=== PATIENT | female | born 1975 | race Caucasian/White ===

== ENCOUNTER 2016-04-13 12:54 | Emergency (ER) | payer MEDICAID ==
[~2016-04-13] VITALS: Wt 91.0 kg
[~2016-04-13 12:54] MED LIST: AMOX500T PO; HYDR-3498 PO; IBUP-1542 PO; SULF-151 PO; ULT50 PO; ZOF8 PO
[2016-04-13] MEDS ORDERED: ONDANSETRON (ODT) 4 MG TAB ODT STA (13:55)
[2016-04-13] MEDS ORDERED: ACETAMINOPHEN 500 MG TAB PO STA (13:55)
[2016-04-13] MEDS ORDERED: TETRACAINE 0.5% 15 ML OPH LEFT EYE ONE (14:00)
[2016-04-13] MEDS ORDERED: ACET500C5 PO (14:26)
[2016-04-13] MEDS ORDERED: ONDA8TAB14 PO (14:26)
[2016-04-13] MEDS ORDERED: DEXT15DR2 LEFT EYE (14:26)
[2016-04-13] MEDS ORDERED: LISI2.5T59 PO (14:27)
--- NOTE | 2016-04-13 14:35 | ERD ---
ER Documentation Chief Complaint Date/Time DATE: 04/13/16 TIME: 14:33 Chief Complaint LEFT EYE REDNESS, MILD DIZZINESS, [place] HPI This 41-year-old female presents with left eye redness noticed today. She also complains of some sensation of headache in the area of her left eye as well as some mild dizziness. She denies any visual changes or visual field deficits except for some mild discomfort. She denies any cough, shortness breath, chest pain, weakness, bowel or bladder incontinence. She denies any history of trauma , discharge. ROS All systems reviewed and are negative except as per history of present illness. Medications Home Meds Active Scripts Lisinopril* (Lisinopril*) 2.5 Mg Tablet, 2.5 MG PO DAILY, #30 TAB Prov:LISEHT MACDONALD MD 04/13/16 Dextran/Hypromellose/Glycerin (Artificial Tears Drops) 15 Ml Drops, 2 DROP LEFT EYE Q6 for 10 Days, EA Prov:LISETH MACDONALD MD 04/13/16 Ondansetron (Ondansetron Odt) 8 Mg Tab.rapdis, 8 MG PO Q6H Y for NAUSEA AND/OR VOMITING, #6 TAB Prov:LISETH MACDONALD MD 04/13/16 Acetaminophen* (Tylophen*) 500 Mg Capsule, 1 CAP PO Q6H Y for PAIN AND OR ELEVATED TEMP, #15 CAP Prov:LISETH MACDONALD MD 04/13/16 Ondansetron Hcl* (Zofran* ODT) 8 mg -ODT Tab.disper, 8 MG PO Q6 Y for NAUSEA AND /OR VOMITING, #6 TAB Prov:LISETH MACDONALD MD 01/14/15 Hydrocodone Bit-Acetaminophen* ([place]*) 5-325 Mg Tab, 1 TAB PO Q6 Y for PAIN, # 14 TAB Prov:LISETH MACDONALD MD 01/14/15 Ibuprofen* (Motrin*) 600 Mg Tab, 600 MG PO Q6H Y for PAIN, #20 TAB Prov:LISETH MACDONALD MD 01/14/15 Reported Medications Amoxicillin Trihydrate (Amoxicillin) 500 Mg Tablet, PO DAILY 07/09/12 Sulfamethoxazole/Trimethoprim (Sulfamethoxazole Tmp Ds Tab) 1 Tab Tablet, PO BID 07/30/11 Tramadol HCl (Tramadol HCl) 50 Mg Tablet, PO Q6 07/30/11 [None] No Conflict Check 07/28/11 Allergies Allergies: Coded Allergies: No Known Allergies (Verified Allergy, Mild, 04/13/16) PMhx/Soc History of Surgery: Yes () Anesthesia Reaction: No Hx Neurological Disorder: No Hx Respiratory Disorders: No Hx Cardiac Disorders: No Hx Psychiatric Problems: No Hx Miscellaneous Medical Probl: No Hx Alcohol Use: No Hx Substance Use: No Hx Tobacco Use: No Smoking Status: Never smoker Physical Exam Vitals Vital Signs Date Time Temp Pulse Resp B/P Pulse Ox O2 Delivery O2 Flow Rate FiO2 04/13/16 12:57 98.6 98 18 159/96 98 Physical Exam Const: [] Alert, [id number] Head: Atraumatic Eyes: There is a conjunctival hemorrhage on the left eye from approximately 3 :00 to 6:00. Eyes are PERRLA and anterior chambers appear normal and i extraocular movements intact. Visual acuity is slightly diminished in the left eye but normal bilaterally no visual field deficits. Intraocular pressure is 28. ENT: Normal External Ears, Nose and Mouth. Neck: Full range of motion..~ No meningismus. Resp: Clear to auscultation bilaterally Cardio: Regular rate and rhythm, no murmurs Abd: Soft, non tender, non distended. Normal bowel sounds Skin: No petechiae or rashes Back: No midline or flank tenderness Ext: No cyanosis, or edema Neur: Awake and alert Psych: Normal Mood and Affect Results 24 hrs Current Medications Medications (Trade) Dose Ordered Sig/Elaine Route PRN Reason Start Time Stop Time Status Last Admin Dose Admin Tetracaine HCl (Tetracaine 0.5% Oph) 1 drop ONCE ONCE LEFT EYE 04/13/16 14:00 04/13/16 14:01 DC 04/13/16 14:08 Acetaminophen (Tylenol Tab) 500 mg ONCE STAT PO 04/13/16 13:55 04/13/16 13:56 DC 04/13/16 14:08 Ondansetron HCl (Zofran Odt) 8 mg ONCE STAT ODT 04/13/16 13:55 04/13/16 13:56 DC 04/13/16 14:08 Procedures/MDM Patient presents with a subconjunctival hemorrhage in the left eye. I believe her symptoms are due to likely pressure. Distal appreciation of ulcers, dendritic lesions signs of acute glaucoma. There is no evidence of retinal artery ischemia, optic neuritis. Signs and symptoms are not consistent with any intracranial etiology. Patient's blood pressure is slightly elevated she gives a history of taking blood pressure medicine every other day. Patient was advised to take for the blood pressure medicine every day as directed and follow -up with primary doctor this week. She should otherwise return to the ER for new or worsening symptoms. Patient will referred to ophthalmology for evaluation this week for further symptoms. Departure Diagnosis: Primary Impression: Subconjunctival hemorrhage Laterality: left Qualified Code: H11.32 - Subconjunctival hemorrhage, left Condition: Stable Patient Instructions: Subconjunctival Hemorrhage Referrals: [facility] Hours: Mon - Thu 9:00 AM - 5:00 PM Additional Instructions: Va al bautista doctor/ specialista para mas evaluacon en el proximo semana. posiblemente necesita autorizado de bautista doctor primario para specialista. Regresa para fiebre, o mas o nueva simptomas. LISETH MACDONALD MD Apr 13, 2016 14:35
[2016-04-13 14:43] VITALS: BP 121/83; PULSE 81; RESP 18
== END 2016-04-13 14:45 | disposition home or self-care (01) ==
LOC: FTE 12:54
DX: H11.32 Conjunctival hemorrhage, left eye (principal)
CPT/HCPCS: Z7610 ×3; 99284